=== PATIENT | male | born 1990 | race Caucasian/White ===

== ENCOUNTER 2021-11-26 00:09 | Emergency (ER) | payer SELFPAY ==
[2021-11-26] MEDS ORDERED: ZANAFLEX4 M1 PO (01:13)
== END 2021-11-26 01:50 | disposition home or self-care (01) ==
LOC: ER1 00:09
DX: M54.6 Pain in thoracic spine (principal); F12.90 Cannabis use, unspecified, uncomplicated
CPT/HCPCS: 99283